=== PATIENT | female | born 1985 | race Caucasian/White ===

== ENCOUNTER → 2021-12-21 08:54 | Outpatient (CLI) | payer OTHER, SELFPAY ==
--- NOTE | ~2021-12-21 | US_ITS ---
EXAMINATION: US breast RT limited HISTORY: Palpable mass at the 12:00 location of the right breast TECHNIQUE: Limited right breast ultrasound is performed in the area of clinical concern. FINDINGS: There is no evidence of focal abnormal cystic or solid mass in the vicinity of the reported palpable abnormality. IMPRESSION: No specific sonographic correlate is identified for the reported palpable abnormality of concern. Fur ther evaluation at this time should be based on clinical assessment. Continued follow-up physical exa mination is recommended. BI-RADS Category 1: Negative Reviewed, dictated and finalized at location A. IMPRESSION: No specific sonographic correlate is identified for the reported palpable abnor mality of concern. Further evaluation at this time should be based on clinical assessment. Continued follow-up physical examination is recommended. BI-RADS Category 1: Negative
--- NOTE | ~2021-12-21 | US_ITS ---
EXAMINATION: US pelvic complete w TV EXAM DATE: 12/21/2021 09:46 INDICATION: Acute pelvic pain. TECHNIQUE: Pelvic transabdominal and transvaginal sonogram was performed. There are multiple graysca le and Doppler images available for interpretation. Comparison is made to prior examination from 07/27. FINDINGS: Uterus measures 7.3 x 3.8 x 4.6 cm, and is morphologically normal. Endometrial stripe karl sures 5 mm, within normal limits. There is no free pelvic fluid. Right adnexa: The ovary measures 2.7 x 1.2 x 1.6 cm and is morphologically normal. Ovarian vascular f low confirmed. Left adnexa: The ovary measures 2.7 x 1.3 x 2.1 cm and is morphologically normal. Ovarian vascular fl ow confirmed. IMPRESSION: Unremarkable pelvic ultrasound exam. Reviewed, dictated and finalized at location B.
== END ==
PROVIDERS: PCP Family Medicine
DX: N63.10 Unspecified lump in the right breast, unspecified quadrant (principal)
CPT/HCPCS: 76642; 76830; 76856